=== PATIENT | female | born 1995 | race Caucasian/White ===

== ENCOUNTER 2022-09-28 00:30 | Emergency (ER) | payer OTHER ==
[~2022-09-28] VITALS: Ht 167.6 cm; Wt 69.9 kg
[2022-09-28 00:46] VITALS: BP 119/76; PULSE 96; RESP 20; TEMP 97.2; O2SAT 98
[2022-09-28] MEDS ORDERED: SODIUM PHOSPHATE 118 ML ENEM RC ONE (06:30)
[2022-09-28] MEDS ORDERED: BOWEL EVACUANT DRINK 4,000 ML PDS PO ONE (07:10)
[2022-09-28] MEDS ORDERED: DOCU-299 PO (07:17)
[2022-09-28 08:08] VITALS: BP 116/75; PULSE 86; RESP 20; TEMP 97.2; O2SAT 98
== END 2022-09-28 08:08 | disposition home or self-care (01) ==
LOC: MED 00:30
DX: K59.00 Constipation, unspecified (principal); Z88.1 Allergy status to other antibiotic agents; Z88.2 Allergy status to sulfonamides; Z79.899 Other long term (current) drug therapy
CPT/HCPCS: 74018; 99283; Q0092

== ENCOUNTER 2022-11-27 12:23 | Emergency (ER) | payer OTHER ==
[~2022-11-27] VITALS: Ht 167.6 cm; Wt 66.2 kg
[~2022-11-27 12:23] MED LIST: DOCU-299 PO
[2022-11-27 12:45] VITALS: BP 115/68; PULSE 63; RESP 18; TEMP 97.6; O2SAT 98
[2022-11-27 14:12] LABS: BILIRUBIN,URINE NEGATIVE (NEGATIVE); BLOOD, URINE TRACE-I (NEGATIVE); COLOR,URINE YELLOW (YELLOW); LEUKOCYTE ESTERASE ,URINE NEGATIVE (NEGATIVE); NITRITE, URINE NEGATIVE (NEGATIVE); PROTEIN,URINE NEGATIVE (NEGATIVE); UGLUCOSE NEGATIVE (NEGATIVE); UROBILINOGEN,URINE 0.2 EU/dL (0.2 - 1)
[2022-11-27 14:24] LABS: APPEARANCE,URINE SLIGHTLY CLOUDY (CLEAR)
[2022-11-27 14:26] LABS: BACTERIA,URINE FEW /HPF (None Seen); SQUAMOUS EPITHELIAL CELL,UR 4-10 (MOD) /LPF (0-3 (FEW)); WBC,URINE 0-5 /HPF (0-5)
[2022-11-27 14:41] VITALS: O2SAT 98
[2022-11-27 15:07] LABS: BASOPHILS % (AUTO) 0.3 % (0.0-2.0); EOSINOPHILS # (AUTO) 0.1 K/uL (0-0.4); EOSINOPHILS % (AUTO) 0.6 % (0.0-4.0); HEMATOCRIT 39.9 % (36-48); HEMOGLOBIN 13.2 g/dL (12.0-16.0); LYMPHOCYTES # (AUTO) 1.6 K/uL (2.5-16.5); LYMPHOCYTES % (AUTO) 13.7 % (20.5-51.1); MEAN CORPUSCULAR HEMOGLOBIN 29 pg (27-31); MEAN CORPUSCULAR HGB CONC 33 g/dL (33-37); MEAN CORPUSCULAR VOLUME 87.1 fL (80-94); MONOCYTES # (AUTO) 0.6 K/uL (0.8-1.0); MONOCYTES % (AUTO) 5.1 % (1.7-9.3); NEUTROPHILS # (AUTO) 9.2 K/uL (1.8-7.7); NEUTROPHILS % (AUTO) 80.3 % (42.2-75.2); PLATELET COUNT (AUTO) 300 K/uL (140-450); RED BLOOD CELL COUNT(AUTO) 4.59 MIL/uL (4.20-5.40); RED CELL DISTRIBUTION WIDTH 16.2 % (11.6-13.7); WHITE BLOOD COUNT (AUTO) 11.4 K/uL (4.8-10.8)
[2022-11-27 15:25] LABS: ALBUMIN 3.8 g/dL (3.4-5.0); ANION GAP 9.9 (8-16); CALCIUM 8.7 mg/dL (8.5-10.1); CARBON DIOXIDE 29.7 mmol/L (21-32); CREATININE 0.7 mg/dL (0.6-1.3); POTASSIUM 3.6 mmol/L (3.5-5.1); TOTAL BILIRUBIN 0.8 mg/dL (0.0-1.0); TOTAL PROTEIN, SERUM 8.5 g/dL (6.4-8.2)
[2022-11-27] MEDS ORDERED: KETOROLAC 30 MG/ML VIAL IVP ONE (17:10)
[2022-11-27] MEDS ORDERED: IBUP-2213 PO (17:30)
[2022-11-27] MEDS ORDERED: TAMS0.4C97 PO (17:30)
[2022-11-27 17:38] VITALS: BP 115/68; PULSE 63; RESP 18; TEMP 97.6
[2022-11-27 17:46] VITALS: O2SAT 98
== END 2022-11-27 17:39 | disposition home or self-care (01) ==
LOC: MED 12:23
DX: R10.30 Lower abdominal pain, unspecified (principal); Z88.2 Allergy status to sulfonamides; Z88.8 Allergy status to other drugs, medicaments and biological substances; Z79.899 Other long term (current) drug therapy
CPT/HCPCS: 36415; 74177; 76705; 76830; 80053; 81001; 81025; 83690; 85025; 93976; 96374; 99285; J1885; Q0092; Q9967

== ENCOUNTER 2023-11-07 01:55 | Emergency (ER) | payer OTHER ==
[~2023-11-07] VITALS: Ht 167.6 cm; Wt 69.4 kg
[~2023-11-07 01:55] MED LIST changes: +IBUP-2213 PO; +TAMS0.4C97 PO
[2023-11-07 02:17] VITALS: BP 112/60; PULSE 89; RESP 16; TEMP 98.3; O2SAT 97
[2023-11-07 02:36] VITALS: O2SAT 97
[2023-11-07] MEDS ORDERED: AMOX-1230 PO (04:39)
[2023-11-07 04:45] VITALS: BP 112/60; PULSE 89; RESP 16; TEMP 98.3; O2SAT 97
== END 2023-11-07 04:57 | disposition home or self-care (01) ==
LOC: MED 01:55
DX: H61.21 Impacted cerumen, right ear (principal); H65.191 Other acute nonsuppurative otitis media, right ear; Z79.899 Other long term (current) drug therapy; Z88.2 Allergy status to sulfonamides; Z88.1 Allergy status to other antibiotic agents
CPT/HCPCS: 99283